=== PATIENT | male | born 1990 | race Caucasian/White ===

== ENCOUNTER 2021-06-21 10:11 | Emergency (ER) | payer OTHER ==
[2021-06-21] MEDS ORDERED: Ibuprofen 800 MG Tab PO ONE (11:31)
== END 2021-06-21 14:56 | disposition home or self-care (01) ==
LOC: JD.ED 10:11
DX: S12.8XXA Fracture of other parts of neck, initial encounter (principal); W50.0XXA Accidental hit or strike by another person, initial encounter
CPT/HCPCS: 70490; 99283; A9270